=== PATIENT | male | born 1980 | race Caucasian/White ===

== ENCOUNTER 2020-05-28 16:05 | Emergency (ER) | payer OTHER ==
[~2020-05-28] VITALS: Ht 167.6 cm; Wt 72.7 kg
[~2020-05-28 16:05] MED LIST: VICOT PO
[2020-05-28] MEDS ORDERED: SODIUM CHLORIDE 0.9% 2,000 ML IV ONE (16:35)
[2020-05-28] MEDS ORDERED: MUPIROCIN CALCIUM 2% 22 GM OINTMENT TP ONE (17:00)
[2020-05-28 17:30] VITALS: BP 120/86
== END 2020-05-28 18:00 | disposition left against medical advice (07) ==
LOC: EMS 16:05
DX: S81.851A Open bite, right lower leg, initial encounter (principal); F17.210 Nicotine dependence, cigarettes, uncomplicated; E11.9 Type 2 diabetes mellitus without complications; W54.0XXA Bitten by dog, initial encounter; Y93.89 Activity, other specified; Y92.89 Other specified places as the place of occurrence of the external cause; Y99.8 Other external cause status
CPT/HCPCS: 82962; 99283; J7030

== ENCOUNTER 2025-05-18 23:11 | Emergency (ER) | payer OTHER ==
[~2025-05-18] VITALS: Ht 172.7 cm; Wt 45.5 kg
[~2025-05-18 23:11] MED LIST changes: +BACTDSB PO; +METF-1185 PO; +PARO-38 PO; -VICOT PO
[2025-05-18 23:53] LABS: PLATELET COUNT (AUTO) 285 K/uL (150-450); RED BLOOD CELL COUNT(AUTO) 3.27 MIL/uL (4.50-5.90); RED CELL DISTRIBUTION WIDTH 13.8 % (11.5-14.5); WHITE BLOOD COUNT (AUTO) 15.4 K/uL (4.5-11.0)
[2025-05-19 00:03] LABS: CALCIUM, TOTAL 8.6 mg/dL (8.8-10.5); CREATININE 1.21 mg/dL (0.60-1.30); GLOMERULAR FILTR. RATE CALC > 60 mL/min (>60); GLUCOSE,RANDOM 247 mg/dL (70-110); SODIUM SERUM 134 mmol/L (136-145); UREA NITROGEN, BLOOD 21 mg/dL (7-18)
[2025-05-19 00:08] LABS: ASPARTATE AMINOTRANSFERASE 21 U/L (15-37); TOTAL PROTEIN, SERUM 7.0 g/dL (6.4-8.2)
[2025-05-19] MEDS: KETOROLAC TROMETHAMINE 30 MG/ML VIAL IVP ONE (00:50)
[2025-05-19] MEDS: SODIUM CHLORIDE 0.9% 1,000 ML IV ONE (00:50)
[2025-05-19 00:54] VITALS: TEMP 98.81068842752
[2025-05-19 00:55] LABS: ACETONE,BLOOD NEGATIVE (NEGATIVE)
[2025-05-19 02:19] VITALS: BP 109/69; PULSE 89; RESP 21; O2SAT 95
== END 2025-05-19 03:00 | disposition home or self-care (01) ==
LOC: EMS 23:54
DX: E11.65 Type 2 diabetes mellitus with hyperglycemia (principal); K86.0 Alcohol-induced chronic pancreatitis; R51.9 Headache, unspecified; F17.210 Nicotine dependence, cigarettes, uncomplicated; F10.90 Alcohol use, unspecified, uncomplicated; Z79.899 Other long term (current) drug therapy; Z91.018 Allergy to other foods; Y90.9 Presence of alcohol in blood, level not specified
CPT/HCPCS: 99284; 80053; 83930; 82009; 83690; 83735; 85025; 36415; 82010; 93005; 96374; J1885; J7030